=== PATIENT | female | born 1930 | race African-American/Black ===

== ENCOUNTER 2017-10-27 06:17 | Day surgery (SDC) | payer OTHER ==
[2017-10-23 12:05] VITALS: BMI 25.2
[2017-10-27] MEDS ORDERED: PHENYLEPHRINE 2.5% OPHTH SOLN 15 ML BOTTLE ONE (06:38)
[2017-10-27] MEDS ORDERED: GENTAMICIN SULFATE 0.3% OPHTHALMIC (EYE DROPS) 5ML BOTTLE ONE (06:38)
[2017-10-27] MEDS ORDERED: TROPICAMIDE 1% OPHTH SOLN 15 ML BOTTLE ONE (06:38)
[2017-10-27] MEDS ORDERED: CYCLOPENTOLATE HCL 1% OPHTH SOLN 2 ML BOTTLE ONE (06:38)
[2017-10-27] MEDS ORDERED: KETOROLAC TROMETHAMINE 0.5% 5 ML BOTTLE OPTHALMIC ONE (06:38)
[2017-10-27] MEDS: PHENYLEPHRINE 2.5% OPHTH SOLN 15 ML BOTTLE OD SCH ×5 (07:00→07:20)
[2017-10-27] MEDS: KETOROLAC TROMETHAMINE 0.5% 5 ML BOTTLE OPTHALMIC OD SCH ×5 (07:00→07:20)
[2017-10-27] MEDS: CYCLOPENTOLATE HCL 1% OPHTH SOLN 2 ML BOTTLE OD SCH ×5 (07:00→07:20)
[2017-10-27] MEDS: TROPICAMIDE 1% OPHTH SOLN 15 ML BOTTLE OD SCH ×5 (07:00→07:20)
[2017-10-27] MEDS: GENTAMICIN SULFATE 0.3% OPHTHALMIC (EYE DROPS) 5ML BOTTLE OD SCH ×5 (07:00→07:20)
[2017-10-27] MEDS ORDERED: POVIDONE-IODINE 5% OPHTHALMIC PREP 30 ML SOLUTION ONE (07:11)
[2017-10-27] MEDS ORDERED: EPI-SHUGARCAINE (EPINEPHRINE 0.025% & LIDOCAINE-PF 0.75%) 4ML ONE (07:11)
[2017-10-27] MEDS ORDERED: BACITRACIN/POLYMYXIN OPH OINT 3.5 GM TUBE ONE (07:11)
[2017-10-27] MEDS ORDERED: TETRACAINE 0.5% OPHTH SOLN 2 ML BOTTLE ONE (07:11)
[2017-10-27] MEDS ORDERED: BETAXOLOL HCL 0.25% OPHTHALMIC 10 ML DROPSBTL ONE (07:11)
[2017-10-27] MEDS ORDERED: ACETYLCHOLINE 1:100 INTRA-OCUL 20 MG/2 ML KIT ONE (07:11)
[2017-10-27] MEDS ORDERED: NEO/POLYMYX B SULF/DEXAMETH OPHTHALMIC 5ML BOTTLE ONE (07:12)
[2017-10-27] MEDS ORDERED: EPINEPHrine/PF 1 MG/1 ML (1:1,000) AMPULE ONE (07:12)
[2017-10-27] MEDS ORDERED: MIDAZOLAM HCL 2 MG/2 ML SINGLE DOSE VIAL ONE (07:34)
[2017-10-27] MEDS ORDERED: TRYPAN BLUE 0.5 ML DISP.SYRIN ONE (08:03)
[2017-10-27] MEDS ORDERED: BSS (NA/CA/MG/K) BALANCED SALT SOLUTION OPHTH SOLN 15 ML BOTTLE ONE (08:53)
[2017-10-27] MEDS ORDERED: ACETAMINOPHEN 325 MG TABLET (FP) PO PRN (09:26)
[2017-10-27 10:11] VITALS: BP 118/65; PULSE 65; TEMP 98
--- NOTE | 2017-11-05 14:12 | OP ---
DATE OF OPERATION: 10/27/2017 PREOPERATIVE DIAGNOSES: 1. Cataract, hypermature, right eye. 2. Miotic pupil, right eye. POSTOPERATIVE DIAGNOSES: 1. Cataract, hypermature, right eye. 2. Miotic pupil, right eye. PROCEDURE: Cataract extraction via phacoemulsification with insertion of posterior chamber lens implant using trypan blue and iris hooks. SURGEON: Don Keen MD HADOOP ENGINEER: Jacqui Espana MD ANESTHESIA: Topical with sedation. ESTIMATED BLOOD LOSS: Less than 1 mL. COMPLICATIONS: None. SPECIMENS: None. DESCRIPTION OF PROCEDURE: The patient was identified in the holding area. After all risks, benefits, and alternatives were explained to the patient and informed consent was obtained, the right eye was marked with a marking pen. The patient then entered the operating room on an eye stretcher. After a formal timeout was performed, topical tetracaine eye drops were instilled into the right eye. The right eye was then prepped and draped in the usual sterile fashion. An eyelid speculum was placed beneath the eyelids of the right eye. A superotemporal paracentesis incision was then created, and then, 5 equally spaced paracentesis incisions were created subsequently, using a 15-degree blade. Then, each of the 5 iris hooks were placed through each of the 5 created paracentesis incisions to capture and dilate the pupil to about 6 mm. Viscoelastic was then injected into the anterior chamber after topical anesthesia was achieved using preservative-free epinephrine and preservative-free lidocaine. Inferotemporal paracentesis incision was created using a 2.4-mm keratome blade. A 360-degree, continuous curvilinear capsulorrhexis was then created using bent cystotome and Utrata forceps. Hydrodissection was performed using balanced saline solution on a cannula. Phacoemulsification was introduced to disassemble and remove the nucleus in its entirety. Irrigation/aspiration was then used to remove any remaining cortical material from the eye. The capsular bag was reformed using viscoelastic. An Adriano model [id number] with a power of 20.5 diopters, serial number [id number] was inspected and found to be defect free and injected into the capsular bag. Irrigation/aspiration was then used to remove any remaining viscoelastic from the eye. All iris hooks were then removed from the eye, totaling of five. Irrigation/aspiration was then used again to remain any excess viscoelastic or debris from the eye. The anterior chamber was reformed using balanced saline solution. Intracameral injections of Miochol and Miostat were then administered, and the pupil came down and was round. All wounds were hydrated with balanced saline solution and noted to be watertight. Topical antibiotic eye drops and ointment were then administered to the right eye, and the eyelid speculum was removed from the right eye. The right eye was shielded. The patient tolerated the procedure well, left the operating room in stable condition to follow up in the eye clinic tomorrow at 9:00. DON Johnson M.D. [id number]
== END 2017-10-27 10:15 | disposition home or self-care (01) ==
LOC: FASU 06:17
PROVIDERS: ATTEND Ophthalmology
PROC: 08RJ3JZ Replacement of Right Lens with Synthetic Substitute, Percutaneous Approach (ICD-10-PCS; principal; 2017-10-27 08:15)
DX: H25.21 Age-related cataract, morgagnian type, right eye (principal); H57.03 Miosis
CPT/HCPCS: 82962